=== PATIENT | male | born 1950 | race Caucasian/White ===

== ENCOUNTER 2017-11-06 09:42 | Observation (INO) | payer MEDICARE, OTHER ==
[2017-11-06] MEDS ORDERED: Albuterol/Ipratropium 3.0-0.5 MG/3 ML Neb Soln NEB ONE (10:00)
[2017-11-06] MEDS ORDERED: methylPREDNISolone Sodium Succinate 125 MG/2 ML SDV IVPUSH ONE (11:09)
--- NOTE | 2017-11-06 11:10 | EDM.PDOC ---
ED HPI GENERAL MEDICAL PROBLEM - General Chief Complaint: Respiratory Problem Stated Complaint: SOB Time Seen by Provider: 11/06/17 09:55 Source of Information: Reports: Patient, Family History Limitations: Reports: Respiratory Distress - History of Present Illness INITIAL COMMENTS - FREE TEXT/NARRATIVE: 66 y.o.w.m with a h/o Small Cell CA of left lung. 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 O2 sat on arrival was 89 on RA. Pt is not on home O2. He left lung is entirely "collapsed, inoperable). As per SO, his mediastinum is shifted to the left. Pt denies chest pain. He is on the 4th cycle for chemo at [facility]. Last Pat scan was stable. No N/V/D or any other acute medical issues. BP 127/57 RR 24 Pulse 120 Pulse ox 96% on 2 liters O2 Temp 37.1 Onset: Today Onset Date: 11/05/17 Onset Time: 08:00 Duration: Hour(s):, Getting Worse, Intermittent Location: Reports: Chest Quality: Reports: Same as Previous Episode Severity: Moderate Improves with: Reports: Medication, Rest Worsens with: Reports: Movement Context: Reports: Other (Asthma, Lung CA left lung "collapsed" ) Associated Symptoms: Reports: Loss of Appetite - Related Data Allergies Allergy/AdvReac Type Severity Reaction Status Date / Time Penicillins Allergy Cannot Verified 11/06/17 10:13 Remember Home Meds: Home Meds Albuterol Sulfate [Albuterol Sulfate HFA] 18 gm IH Q4HR PRN 07/11/13 [History] FLUoxetine [PROzac] 20 mg PO DAILY 07/11/13 [History] Tiotropium [Spiriva Handihaler] 1 dose INH DAILY 03/26/14 [History] atorvaSTATin [Lipitor] 20 mg PO BEDTIME 03/26/14 [History] Benzonatate 200 mg PO TID PRN 11/06/17 [History] Codeine/guaiFENesin [Robitussin AC] 10 ml PO Q4HR PRN 11/06/17 [History] Sodium Polystyrene Sulfonate [Kionex] 15 gram PO ASDIRECTED 11/06/17 [History] Social & Family History - Tobacco Use Years of Tobacco use: 35 - Alcohol Use Days Per Week of Alcohol Use: 0 - Recreational Drug Use Recreational Drug Use: No ED ROS GENERAL - Review of Systems Review Of Systems: See Below Constitutional: Reports: Weakness, Decreased Appetite HEENT: Reports: No Symptoms Respiratory: Reports: Shortness of Breath, Wheezing Cardiovascular: Reports: No Symptoms, Chest Pain, Blood Pressure Problem Endocrine: Reports: No Symptoms GI/Abdominal: Reports: No Symptoms, Mucous in Stool : Reports: No Symptoms Musculoskeletal: Reports: No Symptoms Skin: Reports: No Symptoms Neurological: Reports: No Symptoms Psychiatric: Reports: No Symptoms Hematologic/Lymphatic: Reports: No Symptoms Immunologic: Reports: No Symptoms ED EXAM, GENERAL - Physical Exam Exam: See Below Exam Limited By: Respiratory Distress General Appearance: Alert, WD/WN, Moderate Distress, Obese Eye Exam: Bilateral Eye: Normal Inspection Ears: Normal External Exam Ear Exam: Bilateral Ear: Auricle Normal Nose: Normal Inspection, Normal Mucosa Throat/Mouth: Normal Lips, Normal Gums, Other (pharyngitis) Head: Atraumatic, Normocephalic Neck: Normal Inspection, Supple, Non-Tender, Full Range of Motion Respiratory/Chest: Respiratory Distress, Wheezing, Other (No BS left lung, dullnes to percussion) Cardiovascular: Normal Peripheral Pulses, Regular Rate, Rhythm, No Edema, No Gallop, No JVD, No Murmur Peripheral Pulses: 1+: Brachial (R) GI/Abdominal: Normal Bowel Sounds, Soft, Non-Tender, No Organomegaly, No Abnormal Bruit (Male) Exam: No Hernia Rectal (Males) Exam: Deferred Back Exam: Normal Inspection, Full Range of Motion Extremities: Normal Inspection, Normal Range of Motion, Non-Tender, No Pedal Edema, Normal Capillary Refill Neurological: Alert, Oriented, CN II-XII Intact, Normal Cognition, Normal Gait, No Motor/Sensory Deficits Psychiatric: Normal Affect, Normal Mood Skin Exam: Warm, Dry, Intact, Normal Color, No Rash Lymphatic: No Adenopathy EKG INTERPRETATION EKG Date: 11/06/17 Time: 10:40 Rhythm: NSR Rate (Beats/Min): 103 [place]: Normal P-Wave: Present QRS: Normal ST-T: Normal QT: Normal Comparison: NA - No Prior EKG Course - Vital Signs Text/Narrative:: 66 y.o.w.m with a h/o Small Cell CA of left lung. 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 O2 sat on arrival was 89 on RA. Pt is not on home O2. He left lung is entirely "collapsed, inoperable). As per SO, his mediastinum is shifted to the left. Pt denies chest pain. He is on the 4th cycle for chemo at [facility]. Last Pat scan was stable. No N/V/D or any other acute medical issues. BP 127/57 RR 24 Pulse 120 Pulse ox 96% on 2 liters O2 Temp 37.1 PE: 66 y.o.w.m with SOB, Asthma exacerb. left lung CA with left lung opafication , H/O Kidney CA (not metastatic) Labs: HGB 10.4 RST posCx is pending Imaging: CXRE left lung opafication, midline shift , 2cm more compared to the 2016 CXRs. Right lung is clear as per RAD Labs; WBC 5.2 HGB 10.7 HCT38.4 BUN 45 Cr. 1.9 GFR 38 Impression: Asthma exacerbation, Strep pharyngitis, CRI, H/O SSCA left Lung, S/ P partial right nephrectomy, Opafication of left lung (inoperable) Tx: Duoneb, Solumedrol, Albuterol Xoponex. Azithromycin Reexam: Mild improvement only 12.02 pm Consultation: Dr. Hoffman, Oncologist [place], ok with neb machine will see the pt on 11/21/2017 1.10 pm: Consultation: Dr. Garcia, Hospitalist: accepted the patient for admission. Last Recorded V/S: Last Vital Signs Temp 36.8 C 11/06/17 13:11 Pulse 122 H 11/06/17 13:20 Resp 18 11/06/17 13:15 BP 126/57 L 11/06/17 13:15 Pulse Ox 98 11/06/17 15:42 - Orders/Labs/Meds Orders: Active Orders 24 hr Category Date Time Status Patient Status [ADT] Routine ADT 11/06/17 13:11 Active Oxygen Therapy [RC] PRN Care 11/06/17 13:11 Active Pulse Oximetry [RC] PRN Care 11/06/17 13:13 Active RT Aerosol Therapy [RC] ASDIRECTED Care 11/06/17 12:35 Active RT Aerosol Therapy [RC] ASDIRECTED Care 11/06/17 13:00 Active Up With Assistance [RC] ASDIRECTED Care 11/06/17 13:11 Active VTE/DVT Education [RC] Per Unit Routine Care 11/06/17 13:11 Active Vital Signs [RC] Q4H Care 11/06/17 13:11 Active Regular Diet [DIET] Diet 11/06/17 Breakfast Active CULTURE BLOOD [BC] Urgent Lab 11/06/17 10:15 Received CULTURE BLOOD [BC] Urgent Lab 11/06/17 10:15 Received STREP SCRN A RAPID W CULT CONF [RM] Stat Lab 11/06/17 12:15 Ordered Docusate Sodium [Colace] Med 11/06/17 13:11 Active 100 mg PO BID PRN Ondansetron [Zofran] Med 11/06/17 13:11 Active 4 mg IV Q4H PRN Blood Culture x2 Reflex Set [OM.PC] Urgent Oth 11/06/17 10:01 Ordered Resuscitation Status Routine Resus Stat 11/06/17 13:11 Ordered EKG 12 Lead [EK] Routine Ther 11/06/17 10:00 Ordered Medication Orders Atorvastatin Calcium (Lipitor) 20 mg PO BEDTIME MARLYN Docusate Sodium (Colace) 100 mg PO BID PRN PRN Reason: Constipation Levalbuterol HCl (Xopenex) 1.25 mg INH Q4H PRN PRN Reason: SHORTNESS OF BREATH Ondansetron HCl (Zofran) 4 mg IV Q4H PRN PRN Reason: Nausea/Vomiting Labs: Laboratory Tests 11/06/17 11/06/17 11/06/17 Range/Units 10:15 10:15 10:15 WBC 5.2 (4.5-12.0) X10-3/uL RBC 3.66 L (4.30-5.75) x10(6)uL Hgb 10.7 L D (11.5-15.5) g/dL Hct 33.0 (30.0-51.3) % MCV 90.1 (80-96) fL MCH 29.1 (27.7-33.6) pg MCHC 32.2 (32.2-35.4) g/dL RDW 16.3 H (11.5-15.5) % Plt Count 83 L (125-369) X10(3)uL MPV 8.6 (7.4-10.4) fL Add Manual Diff Yes Neutrophils % (Manual) 86 H (46-82) % Band Neutrophils % 3 (0-6) % Lymphocytes % (Manual) 10 L (13-37) % Monocytes % (Manual) 1 L (4-12) % Clumped Platelets Few Anisocytosis Few ABG pH (7.35-7.45) ABG pCO2 (35-45) mmHg ABG pO2 (83-108) mmHg ABG HCO3 (22-26) mmol/L ABG O2 Saturation (96-97) % ABG Base Excess (-2-2) Toni Test O2 Delivery Device Sodium 139 (135-145) mmol/L Potassium 4.1 (3.5-5.3) mmol/L Chloride 105 (100-110) mmol/L Carbon Dioxide 26 (21-32) mmol/L BUN 43 H (7-18) mg/dL Creatinine 1.9 H (0.70-1.30) mg/dL Est Cr Clr Drug Dosing 38.00 mL/min Estimated GFR (MDRD) 36 L (>60) BUN/Creatinine Ratio 22.6 H (9-20) Glucose 103 (80-116) mg/dL Lactic Acid 1.6 (0.4-2.2) mmol/L Calcium 8.7 (8.6-10.2) mg/dL Creatine Kinase (60-160) IU/L Troponin I (<0.017-0.056) ng/mL NT-Pro-B Natriuret Pep (<=125) pg/mL 11/06/17 11/06/17 11/06/17 Range/Units 10:15 10:15 11:21 WBC (4.5-12.0) X10-3/uL RBC (4.30-5.75) x10(6)uL Hgb (11.5-15.5) g/dL Hct (30.0-51.3) % MCV (80-96) fL MCH (27.7-33.6) pg MCHC (32.2-35.4) g/dL RDW (11.5-15.5) % Plt Count (125-369) X10(3)uL MPV (7.4-10.4) fL Add Manual Diff Neutrophils % (Manual) (46-82) % Band Neutrophils % (0-6) % Lymphocytes % (Manual) (13-37) % Monocytes % (Manual) (4-12) % Clumped Platelets Anisocytosis ABG pH 7.42 (7.35-7.45) ABG pCO2 36 (35-45) mmHg ABG pO2 102 (83-108) mmHg ABG HCO3 23 (22-26) mmol/L ABG O2 Saturation 98 H (96-97) % ABG Base Excess -0.8 (-2-2) Toni Test Passed O2 Delivery Device Nasal cannula Sodium (135-145) mmol/L Potassium (3.5-5.3) mmol/L Chloride (100-110) mmol/L Carbon Dioxide (21-32) mmol/L BUN (7-18) mg/dL Creatinine (0.70-1.30) mg/dL Est Cr Clr Drug Dosing mL/min Estimated GFR (MDRD) (>60) BUN/Creatinine Ratio (9-20) Glucose (80-116) mg/dL Lactic Acid (0.4-2.2) mmol/L Calcium (8.6-10.2) mg/dL Creatine Kinase 51 L (60-160) IU/L Troponin I 0.023 (<0.017-0.056) ng/mL NT-Pro-B Natriuret Pep 4451 H* (<=125) pg/mL Meds: Medications Generic Name Dose Route Start Last Admin Trade Name Freq PRN Reason Stop Dose Admin Atorvastatin Calcium 20 mg 11/06/17 21:00 Lipitor PO BEDTIME MARLYN Docusate Sodium 100 mg 11/06/17 13:11 Colace PO BID PRN Constipation Levalbuterol HCl 1.25 mg 11/06/17 13:43 Xopenex INH Q4H PRN SHORTNESS OF BREATH Ondansetron HCl 4 mg 11/06/17 13:11 Zofran IV Q4H PRN Nausea/Vomiting Discontinued Medications Generic Name Dose Route Start Last Admin Trade Name Freq PRN Reason Stop Dose Admin Albuterol 2.5 mg 11/06/17 12:10 11/06/17 12:15 Proventil Neb Soln NEB 11/06/17 12:11 2.5 mg ONETIME ONE Administration Albuterol 2.5 mg 11/06/17 12:35 11/06/17 12:41 Proventil Neb Soln NEB 11/06/17 12:36 2.5 mg ONETIME ONE Administration Albuterol 2.5 mg 11/06/17 12:35 11/06/17 15:41 Proventil Neb Soln NEB 11/06/17 12:36 Not Given ONETIME ONE Albuterol/Ipratropium 3 ml 11/06/17 10:00 11/06/17 10:39 Duoneb 3.0-0.5 Mg/3 Ml NEB 11/06/17 10:01 3 ml ONETIME ONE Administration Azithromycin 500 mg/ Sodium 250 mls @ 250 mls/hr 11/06/17 13:39 11/06/17 14: 00 Chloride IV 11/06/17 14:08 250 mls/hr ONETIME ONE Administration Levalbuterol HCl 1.25 mg 11/06/17 13:00 11/06/17 13:09 Xopenex NEB 11/06/17 13:01 1.25 mg ONETIME ONE Administration Levalbuterol HCl 1.25 gm 11/06/17 13:15 Xopenex Hfa INH Q4H PRN Asthma Methylprednisolone Sodium Succinate 125 mg 11/06/17 11:09 11/06/17 11:30 Solu-Medrol IVPUSH 11/06/17 11:10 125 mg ONETIME ONE Administration Departure - Departure Disposition: Admitted As Inpatient 68 - Discharge Information - My Orders Last 24 Hours: My Active Orders 11/06/17 10:00 EKG 12 Lead [EK] Routine 11/06/17 10:01 Blood Culture x2 Reflex Set [OM.PC] Urgent 11/06/17 10:15 CULTURE BLOOD [BC] Urgent CULTURE BLOOD [BC] Urgent 11/06/17 12:15 STREP SCRN A RAPID W CULT CONF [RM] Stat 11/06/17 12:35 RT Aerosol Therapy [RC] ASDIRECTED 11/06/17 13:00 RT Aerosol Therapy [RC] ASDIRECTED 11/06/17 13:11 Patient Status [ADT] Routine Oxygen Therapy [RC] PRN Up With Assistance [RC] ASDIRECTED VTE/DVT Education [RC] Per Unit Routine Vital Signs [RC] Q4H Docusate Sodium [Colace] 100 mg PO BID PRN Ondansetron [Zofran] 4 mg IV Q4H PRN Resuscitation Status Routine 11/06/17 13:13 Pulse Oximetry [RC] PRN 11/06/17 Breakfast Regular Diet [DIET] - Assessment/Plan Last 24 Hours: My Active Orders 11/06/17 10:00 EKG 12 Lead [EK] Routine 11/06/17 10:01 Blood Culture x2 Reflex Set [OM.PC] Urgent 11/06/17 10:15 CULTURE BLOOD [BC] Urgent CULTURE BLOOD [BC] Urgent 11/06/17 12:15 STREP SCRN A RAPID W CULT CONF [RM] Stat 11/06/17 12:35 RT Aerosol Therapy [RC] ASDIRECTED 11/06/17 13:00 RT Aerosol Therapy [RC] ASDIRECTED 11/06/17 13:11 Patient Status [ADT] Routine Oxygen Therapy [RC] PRN Up With Assistance [RC] ASDIRECTED VTE/DVT Education [RC] Per Unit Routine Vital Signs [RC] Q4H Docusate Sodium [Colace] 100 mg PO BID PRN Ondansetron [Zofran] 4 mg IV Q4H PRN Resuscitation Status Routine 11/06/17 13:13 Pulse Oximetry [RC] PRN 11/06/17 Breakfast Regular Diet [DIET]
--- NOTE | 2017-11-06 11:34 | CR ---
INDICATION: Short of breath, lung CA. History of renal cell CA. 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 Left lung completely collapsed, not able to have surgery. Diagnosed 4 years ago. Smoker x35 years. CHEST: PA and lateral views of the chest, 11/06/2017, were compared with 2012. There is now noted what appears to be complete collapse of the left lung with shift of midline structures, including the heart, into the left hemithorax. Pleural effusion is suggested on the left. A definite active infiltrate or effusion was not seen on the right. The right lung is hyperaerated, as to be expected. Overlying EKG leads are noted. Port-A-Cath is noted in place with its tip likely in good position. Bony structures appear to be fairly intact. IMPRESSION: Complete collapse of the left lung. Report was given by phone to Dr. Evita looney a.m. - 11/06/2017. ADDENDUM: Comparison study is obtained from [facility] [facility], dated 10/18/2015, which also shows complete opacification of the left hemithorax with a Port-A-Cath in place. There may be somewhat greater degree of left shift of midline structures than was present on the previous study, and a greater amount of hyperaeration of the lung, compared with the previous study also. IMPRESSION: 1. Increased shift of midline structures to the left, approximately 2 cm, compared with 10/18/2015 [facility] images. 2. Hyperaeration of the right lung has increased compared with the previous study of 2015. Report was called to Dr. Jama at 1126 hours, 11/06/2017. [facility]
[2017-11-06] MEDS ORDERED: Albuterol 0.083% 2.5 MG/3 ML Neb Soln NEB ONE ×3 (12:10→12:35)
[2017-11-06] MEDS ORDERED: Levalbuterol HCl 1.25 MG/3 ML Neb NEB ONE (13:00)
[2017-11-06] MEDS ORDERED: Azithromycin 500 MG in Sodium Chloride 0.9% 250 ML IV ONE ×2 (13:09→13:39)
[2017-11-06] MEDS ORDERED: Docusate Sodium 100 MG Cap PO PRN (13:11)
[2017-11-06] MEDS ORDERED: Ondansetron 4 MG/2 ML SDV IV PRN (13:11)
[2017-11-06] MEDS ORDERED: Levalbuterol Tartrate HFA 15 GM Inhaler INH PRN (13:15)
[2017-11-06] MEDS ORDERED: Levalbuterol HCl 1.25 MG/3 ML Neb INH PRN (13:43)
[2017-11-06] MEDS ORDERED: Albuterol/Ipratropium 3.0-0.5 MG/3 ML Neb Soln NEB PRN (17:56)
--- NOTE | 2017-11-06 18:06 | PCM.HP ---
H&P History of Present Illness - General Date of Service: 11/06/17 Admit Problem/Dx: Admission Diagnosis/Problem Admission Diagnosis/Problem Asthma Source of Information: Patient, Old Records History Limitations: Reports: No Limitations - History of Present Illness Initial Comments - Free Text/Narative: Brien 66-year-old male who came in because of fever and increasing shortness of breath last 2 days. He has a history of COPD/Asthma ,squamous cell carcinoma of the lung, atelectasis and collapse of the left lung. He underwent cycle # 5 of chemotherapy on 10 of October. Yesterday he reports more wheezing and cough,associated with sore throat.He was unable to sleep last night because of the symptoms. Temperature was low-grade on and off. His family brought him to he ED. His other Medical problems include: #depression,2010 #Kidney cancer s/p partial Nephrectomy # CKD stage 3,baseline Cr 1.7 # ISH wears CPAP - Related Data Allergies/Adverse Reactions: Allergies Allergy/AdvReac Type Severity Reaction Status Date / Time Penicillins Allergy Cannot Verified 11/06/17 10:13 Remember Home Medications: Home Meds Albuterol Sulfate [Albuterol Sulfate HFA] 18 gm IH Q4HR PRN 07/11/13 [History] FLUoxetine [PROzac] 20 mg PO DAILY 07/11/13 [History] Tiotropium [Spiriva Handihaler] 1 dose INH DAILY 03/26/14 [History] atorvaSTATin [Lipitor] 20 mg PO BEDTIME 03/26/14 [History] Benzonatate 200 mg PO TID PRN 11/06/17 [History] Codeine/guaiFENesin [Robitussin AC] 10 ml PO Q4HR PRN 11/06/17 [History] Sodium Polystyrene Sulfonate [Kionex] 15 gram PO ASDIRECTED 11/06/17 [History] Past Medical History HEENT History: Reports: Cataract Other HEENT History: left cataract remove 2015 Respiratory History: Reports: Other (See Below) Other Respiratory History: lung ca 2012 diagnosed Genitourinary History: Reports: Other (See Below) Other Genitourinary History: kidney surgery right 1/2 removed 2011 Hematologic History: Reports: Other (See Below) Other Hematologic History: neulasta with chemo Oncologic (Cancer) History: Reports: Lung, Renal - Infectious Disease History Infectious Disease History: Reports: None Social & Family History - Family History Family Medical History: Noncontributory - Tobacco Use Smoking Status *Q: Former Smoker Years of Tobacco use: 35 Used Tobacco, but Quit: Yes Month/Year Tobacco Last Used: 08/2012 - Caffeine Use Caffeine Use: Reports: Coffee - Alcohol Use Days Per Week of Alcohol Use: 0 - Recreational Drug Use Recreational Drug Use: No H&P Review of Systems - Review of Systems: Review Of Systems: ROS reveals no pertinent complaints other than HPI. Exam - Exam Exam: See Below - Vital Signs Vital Signs: Last Vital Signs Temp 98.3 F 11/06/17 13:11 Pulse 122 H 11/06/17 13:20 Resp 18 11/06/17 13:15 BP 126/57 L 11/06/17 13:15 Pulse Ox 98 11/06/17 15:42 Weight: 112.037 kg - Exam Quality Assessment: Supplemental Oxygen General: Alert, Oriented, 4 HEENT: PERRLA, Hearing Intact, Mucosa Moist & [place], Nares Patent, Normal Nasal Septum, Posterior Pharynx Clear, Conjunctiva Clear, EOMI, EACs Clear, TMs Clear Neck: Supple, Trachea Midline, Lymphadenopathy Lungs: Decreased Breath Sounds (Left), Rhonchi Cardiovascular: Regular Rate, Regular Rhythm GI/Abdominal Exam: Normal Bowel Sounds, Soft, Non-Tender, No Organomegaly, No Distention, No Abnormal Bruit, No Mass, Pelvis Stable (Male) Exam: Deferred Rectal (Males) Exam: Deferred Back Exam: Normal Inspection, Full Range of Motion, NT Extremities: Normal Inspection, Normal Range of Motion, Non-Tender, No Pedal Edema, Normal Capillary Refill Skin: Warm, Dry, Intact Neurological: Cranial Nerves Intact, Reflexes Equal Bilateral Neuro Extensive - Mental Status: Alert, Oriented x3, Normal Mood/Affect, Normal Cognition Neuro Extensive - Motor, Sensory, Reflexes: CN II-XII Intact, Normal Gait, Normal Reflexes Psychiatric: Alert, Normal Affect, Normal Mood - Patient Data Lab Results Last 24 hrs: Laboratory Results - last 24 hr 11/06/17 11/06/17 11/06/17 Range/Units 10:15 10:15 10:15 WBC 5.2 (4.5-12.0) X10-3/uL RBC 3.66 L (4.30-5.75) x10(6)uL Hgb 10.7 L D (11.5-15.5) g/dL Hct 33.0 (30.0-51.3) % MCV 90.1 (80-96) fL MCH 29.1 (27.7-33.6) pg MCHC 32.2 (32.2-35.4) g/dL RDW 16.3 H (11.5-15.5) % Plt Count 83 L (125-369) X10(3)uL MPV 8.6 (7.4-10.4) fL Add Manual Diff Yes Neutrophils % (Manual) 86 H (46-82) % Band Neutrophils % 3 (0-6) % Lymphocytes % (Manual) 10 L (13-37) % Monocytes % (Manual) 1 L (4-12) % Clumped Platelets Few Anisocytosis Few ABG pH (7.35-7.45) ABG pCO2 (35-45) mmHg ABG pO2 (83-108) mmHg ABG HCO3 (22-26) mmol/L ABG O2 Saturation (96-97) % ABG Base Excess (-2-2) Toni Test O2 Delivery Device Sodium 139 (135-145) mmol/L Potassium 4.1 (3.5-5.3) mmol/L Chloride 105 (100-110) mmol/L Carbon Dioxide 26 (21-32) mmol/L BUN 43 H (7-18) mg/dL Creatinine 1.9 H (0.70-1.30) mg/dL Est Cr Clr Drug Dosing 38.00 mL/min Estimated GFR (MDRD) 36 L (>60) BUN/Creatinine Ratio 22.6 H (9-20) Glucose 103 (80-116) mg/dL Lactic Acid 1.6 (0.4-2.2) mmol/L Calcium 8.7 (8.6-10.2) mg/dL Creatine Kinase (60-160) IU/L Troponin I (<0.017-0.056) ng/mL NT-Pro-B Natriuret Pep (<=125) pg/mL 11/06/17 11/06/17 11/06/17 Range/Units 10:15 10:15 11:21 WBC (4.5-12.0) X10-3/uL RBC (4.30-5.75) x10(6)uL Hgb (11.5-15.5) g/dL Hct (30.0-51.3) % MCV (80-96) fL MCH (27.7-33.6) pg MCHC (32.2-35.4) g/dL RDW (11.5-15.5) % Plt Count (125-369) X10(3)uL MPV (7.4-10.4) fL Add Manual Diff Neutrophils % (Manual) (46-82) % Band Neutrophils % (0-6) % Lymphocytes % (Manual) (13-37) % Monocytes % (Manual) (4-12) % Clumped Platelets Anisocytosis ABG pH 7.42 (7.35-7.45) ABG pCO2 36 (35-45) mmHg ABG pO2 102 (83-108) mmHg ABG HCO3 23 (22-26) mmol/L ABG O2 Saturation 98 H (96-97) % ABG Base Excess -0.8 (-2-2) Toni Test Passed O2 Delivery Device Nasal cannula Sodium (135-145) mmol/L Potassium (3.5-5.3) mmol/L Chloride (100-110) mmol/L Carbon Dioxide (21-32) mmol/L BUN (7-18) mg/dL Creatinine (0.70-1.30) mg/dL Est Cr Clr Drug Dosing mL/min Estimated GFR (MDRD) (>60) BUN/Creatinine Ratio (9-20) Glucose (80-116) mg/dL Lactic Acid (0.4-2.2) mmol/L Calcium (8.6-10.2) mg/dL Creatine Kinase 51 L (60-160) IU/L Troponin I 0.023 (<0.017-0.056) ng/mL NT-Pro-B Natriuret Pep 4451 H* (<=125) pg/mL Result Diagrams: 11/06/17 10:15 11/06/17 10:15 Abundio Results Last 24 hrs: Microbiology 11/06/17 12:15 Group A Streptococcus Rapid Screen - Final Throat Positive Strep A Screen - Problem List (1) Squamous cell carcinoma of lung, stage II SNOMED Code(s): 858934509 ICD Code: C34.90 - MALIGNANT NEOPLASM OF UNSP PART OF UNSP BRONCHUS OR LUNG Status: Acute Current Visit: Yes (2) COPD exacerbation SNOMED Code(s): 895589837 ICD Code: J44.1 - CHRONIC OBSTRUCTIVE PULMONARY DISEASE W (ACUTE) EXACERBATION Status: Acute Current Visit: Yes (3) Squamous cell lung cancer SNOMED Code(s): 088385907, 943231849 ICD Code: C34.90 - MALIGNANT NEOPLASM OF UNSP PART OF UNSP BRONCHUS OR LUNG Status: Acute Current Visit: Yes Qualifiers: Laterality: left Qualified Code(s): C34.92 - Malignant neoplasm of unspecified part of left bronchus or lung (4) ISH (obstructive sleep apnea) SNOMED Code(s): 55259246 ICD Code: G47.33 - OBSTRUCTIVE SLEEP APNEA (ADULT) (PEDIATRIC) Status: Acute Current Visit: Yes (5) Obesity SNOMED Code(s): 179157777, 854652228 ICD Code: E66.9 - OBESITY, UNSPECIFIED Status: Acute Current Visit: Yes (6) CKD (chronic kidney disease) stage 3, GFR 30-59 ml/min SNOMED Code(s): 769322225 ICD Code: N18.3 - CHRONIC KIDNEY DISEASE, STAGE 3 (MODERATE) Status: Acute Current Visit: Yes (7) Anemia SNOMED Code(s): 280312098 ICD Code: D64.9 - ANEMIA, UNSPECIFIED Status: Acute Current Visit: Yes (8) Depression SNOMED Code(s): 47486149 ICD Code: F32.9 - MAJOR DEPRESSIVE DISORDER, SINGLE EPISODE, UNSPECIFIED Status: Acute Current Visit: Yes Qualifiers: Depression Type: major depressive disorder Active/Remission status: remission status unspecified (9) HLD (hyperlipidemia) SNOMED Code(s): 76334716 ICD Code: E78.5 - HYPERLIPIDEMIA, UNSPECIFIED Status: Acute Current Visit : Yes Qualifiers: Hyperlipidemia type: unspecified Qualified Code(s): E78.5 - Hyperlipidemia , unspecified (10) Strep throat SNOMED Code(s): 52155409 ICD Code: J02.0 - STREPTOCOCCAL PHARYNGITIS Status: Acute Current Visit: Yes Problem List Initiated/Reviewed/Updated: Yes Orders Last 24hrs: Active Orders 24 hr Category Date Time Status Patient Status [ADT] Routine ADT 11/06/17 13:11 Active Intake and Output [RC] QSHIFT Care 11/06/17 17:57 Ordered Oxygen Therapy [RC] PRN Care 11/06/17 13:11 Active Oxygen Therapy [RC] PRN Care 11/06/17 17:57 Ordered Pulse Oximetry [RC] PRN Care 11/06/17 13:13 Active RT Aerosol Therapy [RC] ASDIRECTED Care 11/06/17 12:35 Active RT Aerosol Therapy [RC] ASDIRECTED Care 11/06/17 13:00 Active RT Aerosol Therapy [RC] ASDIRECTED Care 11/06/17 17:58 Ordered RT Post Treatment Assessment [RC] Click to Edit Care 11/06/17 13:17 Active Up With Assistance [RC] ASDIRECTED Care 11/06/17 13:11 Active VTE/DVT Education [RC] Per Unit Routine Care 11/06/17 13:11 Active VTE/DVT Education [RC] Per Unit Routine Care 11/06/17 17:57 Ordered Vital Signs [RC] Q4H Care 11/06/17 13:11 Active Regular Diet [DIET] Diet 11/06/17 Breakfast Active CBC WITH AUTO DIFF [HEME] AM Lab 11/07/17 05:11 Ordered COMPREHENSIVE METABOLIC PN,CMP [CHEM] AM Lab 11/07/17 05:11 Ordered CULTURE BLOOD [BC] Urgent Lab 11/06/17 10:15 Received CULTURE BLOOD [BC] Urgent Lab 11/06/17 10:15 Received MAGNESIUM [CHEM] AM Lab 11/07/17 05:11 Ordered PHOSPHORUS [CHEM] AM Lab 11/07/17 05:11 Ordered STREP SCRN A RAPID W CULT CONF [RM] Stat Lab 11/06/17 12:15 Ordered Albuterol/Ipratropium [DuoNeb 3.0-0.5 MG/3 ML] Med 11/06/17 17:56 Ordered 3 ml NEB QID PRN Docusate Sodium [Colace] Med 11/06/17 13:11 Active 100 mg PO BID PRN Levalbuterol HCl [Xopenex] Med 11/06/17 13:43 Active 1.25 mg INH Q4H PRN Ondansetron [Zofran] Med 11/06/17 13:11 Active 4 mg IV Q4H PRN atorvaSTATin [Lipitor] Med 11/06/17 21:00 Active 20 mg PO BEDTIME methylPREDNISolone Sod Succ [Solu-MEDROL] Med 11/06/17 18:00 Ordered 125 mg IVPUSH Q8H Blood Culture x2 Reflex Set [OM.PC] Urgent Oth 11/06/17 10:01 Ordered Sequential Compression Device [OM.PC] Per Unit Routine Oth 11/06/17 17:57 Ordered Resuscitation Status Routine Resus Stat 11/06/17 13:11 Ordered EKG 12 Lead [EK] Routine Ther 11/06/17 10:00 Ordered Medication Orders Albuterol/Ipratropium (Duoneb 3.0-0.5 Mg/3 Ml) 3 ml NEB QID PRN PRN Reason: Wheezing Atorvastatin Calcium (Lipitor) 20 mg PO BEDTIME MARLYN Docusate Sodium (Colace) 100 mg PO BID PRN PRN Reason: Constipation Levalbuterol HCl (Xopenex) 1.25 mg INH Q4H PRN PRN Reason: SHORTNESS OF BREATH Methylprednisolone Sodium Succinate (Solu-Medrol) 125 mg IVPUSH Q8H MARLYN Ondansetron HCl (Zofran) 4 mg IV Q4H PRN PRN Reason: Nausea/Vomiting Assessment/Plan Comment:: He is tested positive for strep. I agree with azithromycin. I will also treat him for COPD exacerbation with oxygen supplementation by nasal cannula, SVNs, and Solu-Medrol. We'll repeat some labs in the morning and decrease better probably discharge him. His BNP is high but will repeat in the morning, not sure what the cause of this is I see no history of CHF in his record did have a stress test in 2016 that was suggestive of an ejection fraction of 71%. No evidence of ischemia at that time.
[2017-11-06] MEDS ORDERED: GUAIFENESIN PO PRN (18:12)
[2017-11-06] MEDS ORDERED: BENZONATATE 200 MG PO PRN (18:12)
[2017-11-06] MEDS ORDERED: CODEINE PO PRN (18:12)
[2017-11-06] MEDS ORDERED: SODIUM POLYSTYRENE SULFONATE 15 GM PO SCH (18:15)
[2017-11-06] MEDS ORDERED: ClonazePAM 0.5 MG Tab PO PRN (18:42)
[2017-11-06] MEDS: methylPREDNISolone Sodium Succinate 125 MG/2 ML SDV IVPUSH SCH (19:03)
[2017-11-06] MEDS: Sodium Chloride 0.9% 10 ML Syringe FLUSH PRN (19:38)
[2017-11-06] MEDS ORDERED: ATORVASTATIN 20 MG PO SCH (21:00)
[2017-11-06] MEDS ORDERED: atorvaSTATin 20 MG Tab PO SCH (21:00)
[2017-11-07] MEDS: methylPREDNISolone Sodium Succinate 125 MG/2 ML SDV IVPUSH SCH ×2 (01:02→10:07)
[2017-11-07] MEDS: Sodium Chloride 0.9% 10 ML Syringe FLUSH PRN ×2 (01:03→10:07)
[2017-11-07] MEDS ORDERED: Codeine/guaiFENesin 100-10 MG/5 ML Syrup 5 ML Cup PO PRN (08:00)
--- NOTE | 2017-11-07 08:29 | PCM.PN ---
- General Info Date of Service: 11/07/17 Subjective Update: Brien slept well has no new complaints today. Functional Status: Reports: Pain Controlled - Review of Systems General: Reports: No Symptoms HEENT: Reports: No Symptoms Pulmonary: Reports: Shortness of Breath, Cough, Wheezing Cardiovascular: Reports: No Symptoms - Patient Data Vitals - Most Recent: Last Vital Signs Temp 97.4 F 11/07/17 07:13 Pulse 88 11/07/17 07:50 Resp 20 11/07/17 07:13 BP 130/83 11/07/17 07:13 Pulse Ox 98 11/07/17 07:50 Weight - Most Recent: 112.037 kg I&O - Last 24 Hours: Intake & Output 11/06/17 11/07/17 11/07/17 22:59 06:59 14:59 Intake Total 250 400 Balance 250 400 Lab Results Last 24 Hours: Laboratory Results - last 24 hr 11/06/17 11/06/17 11/06/17 Range/Units 10:15 10:15 10:15 WBC 5.2 (4.5-12.0) X10-3/uL RBC 3.66 L (4.30-5.75) x10(6)uL Hgb 10.7 L D (11.5-15.5) g/dL Hct 33.0 (30.0-51.3) % MCV 90.1 (80-96) fL MCH 29.1 (27.7-33.6) pg MCHC 32.2 (32.2-35.4) g/dL RDW 16.3 H (11.5-15.5) % Plt Count 83 L (125-369) X10(3)uL MPV 8.6 (7.4-10.4) fL Add Manual Diff Yes Neutrophils % (Manual) 86 H (46-82) % Band Neutrophils % 3 (0-6) % Lymphocytes % (Manual) 10 L (13-37) % Monocytes % (Manual) 1 L (4-12) % Clumped Platelets Few Anisocytosis Few ABG pH (7.35-7.45) ABG pCO2 (35-45) mmHg ABG pO2 (83-108) mmHg ABG HCO3 (22-26) mmol/L ABG O2 Saturation (96-97) % ABG Base Excess (-2-2) Toni Test O2 Delivery Device Sodium 139 (135-145) mmol/L Potassium 4.1 (3.5-5.3) mmol/L Chloride 105 (100-110) mmol/L Carbon Dioxide 26 (21-32) mmol/L BUN 43 H (7-18) mg/dL Creatinine 1.9 H (0.70-1.30) mg/dL Est Cr Clr Drug Dosing 38.00 mL/min Estimated GFR (MDRD) 36 L (>60) BUN/Creatinine Ratio 22.6 H (9-20) Glucose 103 (80-116) mg/dL Lactic Acid 1.6 (0.4-2.2) mmol/L Calcium 8.7 (8.6-10.2) mg/dL Phosphorus (2.6-4.6) mg/dL Magnesium (1.8-2.5) mg/dL Total Bilirubin (0.1-1.3) mg/dL AST (5-25) IU/L ALT (12-36) U/L Alkaline Phosphatase (56-112) IU/L Creatine Kinase (60-160) IU/L Troponin I (<0.017-0.056) ng/mL NT-Pro-B Natriuret Pep (<=125) pg/mL Total Protein (6.0-8.0) g/dL Albumin (3.2-4.6) g/dL Globulin g/dL Albumin/Globulin Ratio 11/06/17 11/06/17 11/06/17 Range/Units 10:15 10:15 11:21 WBC (4.5-12.0) X10-3/uL RBC (4.30-5.75) x10(6)uL Hgb (11.5-15.5) g/dL Hct (30.0-51.3) % MCV (80-96) fL MCH (27.7-33.6) pg MCHC (32.2-35.4) g/dL RDW (11.5-15.5) % Plt Count (125-369) X10(3)uL MPV (7.4-10.4) fL Add Manual Diff Neutrophils % (Manual) (46-82) % Band Neutrophils % (0-6) % Lymphocytes % (Manual) (13-37) % Monocytes % (Manual) (4-12) % Clumped Platelets Anisocytosis ABG pH 7.42 (7.35-7.45) ABG pCO2 36 (35-45) mmHg ABG pO2 102 (83-108) mmHg ABG HCO3 23 (22-26) mmol/L ABG O2 Saturation 98 H (96-97) % ABG Base Excess -0.8 (-2-2) Toni Test Passed O2 Delivery Device Nasal cannula Sodium (135-145) mmol/L Potassium (3.5-5.3) mmol/L Chloride (100-110) mmol/L Carbon Dioxide (21-32) mmol/L BUN (7-18) mg/dL Creatinine (0.70-1.30) mg/dL Est Cr Clr Drug Dosing mL/min Estimated GFR (MDRD) (>60) BUN/Creatinine Ratio (9-20) Glucose (80-116) mg/dL Lactic Acid (0.4-2.2) mmol/L Calcium (8.6-10.2) mg/dL Phosphorus (2.6-4.6) mg/dL Magnesium (1.8-2.5) mg/dL Total Bilirubin (0.1-1.3) mg/dL AST (5-25) IU/L ALT (12-36) U/L Alkaline Phosphatase (56-112) IU/L Creatine Kinase 51 L (60-160) IU/L Troponin I 0.023 (<0.017-0.056) ng/mL NT-Pro-B Natriuret Pep 4451 H* (<=125) pg/mL Total Protein (6.0-8.0) g/dL Albumin (3.2-4.6) g/dL Globulin g/dL Albumin/Globulin Ratio 11/07/17 11/07/17 Range/Units 06:10 06:10 WBC 3.5 L (4.5-12.0) X10-3/uL RBC 3.55 L (4.30-5.75) x10(6)uL Hgb 10.4 L (11.5-15.5) g/dL Hct 31.8 (30.0-51.3) % MCV 89.6 (80-96) fL MCH 29.2 (27.7-33.6) pg MCHC 32.6 (32.2-35.4) g/dL RDW 16.9 H (11.5-15.5) % Plt Count 90 L (125-369) X10(3)uL MPV 9.0 (7.4-10.4) fL Add Manual Diff Yes Neutrophils % (Manual) 86 H (46-82) % Band Neutrophils % 2 (0-6) % Lymphocytes % (Manual) 6 L (13-37) % Monocytes % (Manual) 6 (4-12) % Clumped Platelets Anisocytosis Few ABG pH (7.35-7.45) ABG pCO2 (35-45) mmHg ABG pO2 (83-108) mmHg ABG HCO3 (22-26) mmol/L ABG O2 Saturation (96-97) % ABG Base Excess (-2-2) Toni Test O2 Delivery Device Sodium 140 (135-145) mmol/L Potassium 4.5 (3.5-5.3) mmol/L Chloride 106 (100-110) mmol/L Carbon Dioxide 25 (21-32) mmol/L BUN 47 H (7-18) mg/dL Creatinine 2.2 H* (0.70-1.30) mg/dL Est Cr Clr Drug Dosing 32.82 mL/min Estimated GFR (MDRD) 30 L (>60) BUN/Creatinine Ratio 21.4 H (9-20) Glucose 160 H (80-116) mg/dL Lactic Acid (0.4-2.2) mmol/L Calcium 9.0 (8.6-10.2) mg/dL Phosphorus 4.3 (2.6-4.6) mg/dL Magnesium 2.2 (1.8-2.5) mg/dL Total Bilirubin 0.4 (0.1-1.3) mg/dL AST 13 (5-25) IU/L ALT 18 (12-36) U/L Alkaline Phosphatase 71 (56-112) IU/L Creatine Kinase (60-160) IU/L Troponin I (<0.017-0.056) ng/mL NT-Pro-B Natriuret Pep (<=125) pg/mL Total Protein 6.1 (6.0-8.0) g/dL Albumin 2.7 L (3.2-4.6) g/dL Globulin 3.4 g/dL Albumin/Globulin Ratio 0.8 Abundio Results Last 24 Hours: Microbiology 11/06/17 12:15 Group A Streptococcus Rapid Screen - Final Throat Positive Strep A Screen Med Orders - Current: Current Medications Albuterol/Ipratropium (Duoneb 3.0-0.5 Mg/3 Ml) 3 ml NEB QID PRN PRN Reason: Wheezing Last Admin: 11/07/17 07:35 Dose: 3 ml Atorvastatin Calcium (Lipitor) 20 mg PO BEDTIME MARLYN Last Admin: 11/06/17 20:20 Dose: 20 mg Clonazepam (Klonopin) 0.5 mg PO BEDTIME PRN PRN Reason: Insomnia Docusate Sodium (Colace) 100 mg PO BID PRN PRN Reason: Constipation Fluoxetine HCl (Prozac) 20 mg PO DAILY [facility] Guaifenesin/Codeine Phosphate (Robitussin Ac) 10 ml PO Q4H PRN PRN Reason: COUGH Levalbuterol HCl (Xopenex) 1.25 mg INH Q4H PRN PRN Reason: SHORTNESS OF BREATH Last Admin: 11/06/17 19:10 Dose: 1.25 mg Methylprednisolone Sodium Succinate (Solu-Medrol) 125 mg IVPUSH Q8H MARLYN Last Admin: 11/07/17 01:02 Dose: 125 mg Benzonatate ( Tessalon) 200 Mg Capsule Own Med 0 mg PO TID PRN PRN Reason: Cough Non-Formulary Medication (Sodium Polystyrene Sulfonate [Kionex]) 15 gram PO ASDIRECTED MARLYN Ondansetron HCl (Zofran) 4 mg IV Q4H PRN PRN Reason: Nausea/Vomiting Sodium Chloride (Saline Flush) 10 ml FLUSH ASDIRECTED PRN PRN Reason: Keep Vein Open Last Admin: 11/07/17 01:03 Dose: 10 ml Tiotropium Bernard (Spiriva Handihaler) 18 mcg INH DAILY MARLYN Discontinued Medications Albuterol (Proventil Neb Soln) 2.5 mg NEB ONETIME ONE Stop: 11/06/17 12:11 Last Admin: 11/06/17 12:15 Dose: 2.5 mg Albuterol (Proventil Neb Soln) 2.5 mg NEB ONETIME ONE Stop: 11/06/17 12:36 Last Admin: 11/06/17 12:41 Dose: 2.5 mg Albuterol (Proventil Neb Soln) 2.5 mg NEB ONETIME ONE Stop: 11/06/17 12:36 Last Admin: 11/06/17 15:41 Dose: Not Given Albuterol/Ipratropium (Duoneb 3.0-0.5 Mg/3 Ml) 3 ml NEB ONETIME ONE Stop: 11/06/17 10:01 Last Admin: 11/06/17 10:39 Dose: 3 ml Atorvastatin Calcium (Lipitor) 20 mg PO BEDTIME MARLYN Guaifenesin/Codeine Phosphate (Robitussin Ac) 10 ml PO Q4H PRN PRN Reason: Cough Azithromycin 500 mg/ Sodium (Chloride) 250 mls @ 250 mls/hr IV ONETIME ONE Stop: 11/06/17 14:08 Last Admin: 11/06/17 14:00 Dose: 250 mls/hr Levalbuterol HCl (Xopenex) 1.25 mg NEB ONETIME ONE Stop: 11/06/17 13:01 Last Admin: 11/06/17 13:09 Dose: 1.25 mg Levalbuterol HCl (Xopenex Hfa) 1.25 gm INH Q4H PRN PRN Reason: Asthma Methylprednisolone Sodium Succinate (Solu-Medrol) 125 mg IVPUSH ONETIME ONE Stop: 11/06/17 11:10 Last Admin: 11/06/17 11:30 Dose: 125 mg - Exam Quality Assessment: No: Supplemental Oxygen General: Alert, Oriented HEENT: Pupils Equal, Pupils Reactive, EOMI, Mucous Membr. Moist/[place] Neck: Supple Lungs: Decreased Breath Sounds, Wheezing - Problem List & Annotations (1) Squamous cell carcinoma of lung, stage II SNOMED Code(s): 136401189 Code(s): C34.90 - MALIGNANT NEOPLASM OF UNSP PART OF UNSP BRONCHUS OR LUNG Status: Acute Current Visit: Yes Qualifiers: Laterality: unspecified laterality Qualified Code(s): C34.90 - Malignant neoplasm of unspecified part of unspecified bronchus or lung (2) COPD exacerbation SNOMED Code(s): 614613970 Code(s): J44.1 - CHRONIC OBSTRUCTIVE PULMONARY DISEASE W (ACUTE) EXACERBATION Status: Acute Current Visit: Yes (3) Squamous cell lung cancer SNOMED Code(s): 321080372, 965683287 Code(s): C34.90 - MALIGNANT NEOPLASM OF UNSP PART OF UNSP BRONCHUS OR LUNG Status: Acute Current Visit: Yes Qualifiers: Laterality: left Qualified Code(s): C34.92 - Malignant neoplasm of unspecified part of left bronchus or lung (4) ISH (obstructive sleep apnea) SNOMED Code(s): 04353281 Code(s): G47.33 - OBSTRUCTIVE SLEEP APNEA (ADULT) (PEDIATRIC) Status: Acute Current Visit: Yes (5) Obesity SNOMED Code(s): 273664712, 310807720 Code(s): E66.9 - OBESITY, UNSPECIFIED Status: Acute Current Visit: Yes (6) CKD (chronic kidney disease) stage 3, GFR 30-59 ml/min SNOMED Code(s): 701128634 Code(s): N18.3 - CHRONIC KIDNEY DISEASE, STAGE 3 (MODERATE) Status: Acute Current Visit: Yes (7) Anemia SNOMED Code(s): 468795523 Code(s): D64.9 - ANEMIA, UNSPECIFIED Status: Acute Current Visit: Yes (8) Depression SNOMED Code(s): 22283691 Code(s): F32.9 - MAJOR DEPRESSIVE DISORDER, SINGLE EPISODE, UNSPECIFIED Status: Acute Current Visit: Yes Qualifiers: Depression Type: major depressive disorder Active/Remission status: remission status unspecified (9) HLD (hyperlipidemia) SNOMED Code(s): 26048351 Code(s): E78.5 - HYPERLIPIDEMIA, UNSPECIFIED Status: Acute Current Visit : Yes Qualifiers: Hyperlipidemia type: unspecified Qualified Code(s): E78.5 - Hyperlipidemia , unspecified (10) Strep throat SNOMED Code(s): 09339537 Code(s): J02.0 - STREPTOCOCCAL PHARYNGITIS Status: Acute Current Visit: Yes - Problem List Review Problem List Initiated/Reviewed/Updated: Yes - My Orders Last 24 Hours: My Active Orders 11/06/17 17:56 Albuterol/Ipratropium [DuoNeb 3.0-0.5 MG/3 ML] 3 ml NEB QID PRN 11/06/17 17:57 Intake and Output [RC] QSHIFT Oxygen Therapy [RC] PRN VTE/DVT Education [RC] Per Unit Routine Sequential Compression Device [OM.PC] Per Unit Routine 11/06/17 17:58 RT Aerosol Therapy [RC] ASDIRECTED 11/06/17 18:00 methylPREDNISolone Sod Succ [Solu-MEDROL] 125 mg IVPUSH Q8H 11/06/17 18:12 Benzonatate [Benzonatate] 0 mg PO TID PRN 11/06/17 18:15 Sodium Polystyrene Sulfonate [Kionex] 15 gram PO ASDIRECTED 11/06/17 18:42 ClonazePAM [KlonoPIN] 0.5 mg PO BEDTIME PRN 11/06/17 19:13 Sodium Chloride 0.9% [Saline Flush] 10 ml FLUSH ASDIRECTED PRN 11/07/17 08:00 Codeine/guaiFENesin [Robitussin AC] 10 ml PO Q4H PRN 11/07/17 08:27 Ready for Discharge [RC] PER UNIT ROUTINE 11/07/17 09:00 FLUoxetine [PROzac] 20 mg PO DAILY Tiotropium [Spiriva HandiHaler] 18 mcg INH DAILY - Plan Plan:: He is better today. Still has cough and wheezing noted of oxygenation. Salt has improved. He is ready to go home. I will discharge him home to complete 5 days of azithromycin and prednisone. I've advised him to see his primary physician next week. He might need to go on a LABA
[2017-11-07] MEDS ORDERED: FLUOXETINE 20 MG PO SCH (09:00)
[2017-11-07] MEDS ORDERED: TIOTROPIUM 18 MCG INH SCH (09:00)
[2017-11-07 11:01] VITALS: BP 119/64
== END 2017-11-07 13:03 | disposition home or self-care (01) ==
LOC: FB.ED 09:42 → FB.MS 13:15
PROVIDERS: ADMIT Family Medicine; ATTEND Family Medicine
DX: C34.92 Malignant neoplasm of unspecified part of left bronchus or lung (principal); J44.1 Chronic obstructive pulmonary disease with (acute) exacerbation; G47.33 Obstructive sleep apnea (adult) (pediatric); E66.9 Obesity, unspecified; N18.3 Chronic kidney disease, stage 3 (moderate); D64.9 Anemia, unspecified; F32.9 Major depressive disorder, single episode, unspecified; E78.5 Hyperlipidemia, unspecified; J02.0 Streptococcal pharyngitis; Z88.0 Allergy status to penicillin; Z88.8 Allergy status to other drugs, medicaments and biological substances; Z87.891 Personal history of nicotine dependence
CPT/HCPCS: 36415; 36600; 71046; 80048; 80053; 82550; 82803; 83605; 83735; 83880; 84100; 84484; 85025; 87040; 87880; 93005; 94640; 96374; 99285; A9270; J0456; J2930; J7050; J7612; J7620; 96365; 96375; 96376; G0378

== ENCOUNTER 2020-02-12 07:09 | Day surgery (SDC) | payer MEDICARE, OTHER ==
[~2020-02-12 07:09] MED LIST: Albuterol/Ipratropium 3.0-0.5 MG/3 ML Neb Soln NEB PRN
[2020-02-12] MEDS ORDERED: Midazolam 1 MG/ML 2 ML SDV IV ONE (07:10)
[2020-02-12] MEDS ORDERED: Propofol 200 MG/20 ML SDV IV ONE (07:10)
[2020-02-12] MEDS ORDERED: Lactated Ringers 1,000 ML IV SCH (07:15)
[2020-02-12] MEDS ORDERED: Sodium Chloride 0.9% 10 ML Syringe FLUSH PRN (07:15)
[2020-02-12] MEDS ORDERED: Albuterol/Ipratropium 3.0-0.5 MG/3 ML Neb Soln NEB PRN (07:15)
--- NOTE | 2020-02-12 08:48 | PCM.OPNOTE ---
- General Post-Op/Procedure Note Date of Surgery/Procedure: 02/12/20 Operative Procedure(s): c scope with loop biospy Findings: ascending x3, transverse x1, descending x3, sigmoid x2 colon polyps Pre Op Diagnosis: screening Post-Op Diagnosis: colon polyps ascending x3, transverse x1, descending x3, sigmoid x2 Anesthesia Technique: MAC Primary Surgeon: Can Overton Anesthesia Provider: Janeth Belcher Pathology: ascending x3, transverse x1, descending x3, sigmoid x2 polyps Complications: None Condition: Good Free Text/Narrative:: see dictation
[2020-02-12 10:43] VITALS: BP 123/71; PULSE 79
--- NOTE | 2020-02-12 15:03 | OR ---
DATE OF OPERATION: 02/12/2020 SURGEON: Can Overton MD PROCEDURE PERFORMED: Colonoscopy with hot loop snare biopsy. PREOPERATIVE DIAGNOSIS: Colon cancer screening. POSTOPERATIVE DIAGNOSES: Ascending colon polyps x3, transverse colon polyp x1, descending colon polyps x3, sigmoid colon polyps x2. INDICATIONS FOR PROCEDURE: This is a 69-year-old white male who presents for routine followup colonoscopy. He was offered and accepted same. DESCRIPTION OF OPERATION: After an excellent IV sedation was administered, digital rectal exam was performed. No marked abnormality was noted. Flexible colonoscope was inserted and advanced to the cecum. The prep was excellent. The following findings were noted: Ascending colon, 3 polyps were encountered, biopsied with hot loop snare, submitted in one container. Transverse colon, one polyp, biopsied with the hot loop snare and submitted. Descending colon, 3 polyps, biopsied with the hot loop snare and submitted in one container. Sigmoid, 2 polyps, biopsied with the hot loop snare and submitted in one container. The rectum was unremarkable. Results will be sent to the patient via letter and the size varied from 3 to approximately 8 mm with the largest being a polyp of the ascending colon. /[id number] /MODL
== END 2020-02-12 09:24 | disposition home or self-care (01) ==
LOC: FB.SDS 07:09
PROVIDERS: ATTEND Surgery
DX: Z12.11 Encounter for screening for malignant neoplasm of colon (principal); D12.2 Benign neoplasm of ascending colon; D12.3 Benign neoplasm of transverse colon; D12.4 Benign neoplasm of descending colon; D12.5 Benign neoplasm of sigmoid colon; J44.9 Chronic obstructive pulmonary disease, unspecified; E78.5 Hyperlipidemia, unspecified; N18.3 Chronic kidney disease, stage 3 (moderate); D63.1 Anemia in chronic kidney disease; Z90.49 Acquired absence of other specified parts of digestive tract; Z98.890 Other specified postprocedural states; Z88.0 Allergy status to penicillin; Z79.899 Other long term (current) drug therapy
CPT/HCPCS: 00812; 45385; J2250; J2704; J7120; 88305; J7620-GY

== ENCOUNTER 2023-06-08 10:54 | Emergency (ER) | payer MEDICARE, OTHER ==
[2023-06-08] MEDS ORDERED: Nitroglycerin 0.4 MG Tab.SL SL PRN (11:30)
[2023-06-08] MEDS ORDERED: Aspirin 81 MG Tab.Chew PO ONE (11:30)
[2023-06-08] MEDS ORDERED: amLODIPine 5 MG Tab PO ONE (11:48)
[2023-06-08] MEDS ORDERED: Labetalol 20 MG/4 ML Syringe IVPUSH ONE (11:48)
[2023-06-08 11:54] LABS: BASOPHILS PERCENT AUTO 0.4 % (0.3-3.8); EOSINOPHILS ABSOLUTE AUTO 0.1 x10-3/uL (0.0-0.6); EOSINOPHILS PERCENT AUTO 2.1 % (0.1-6.8); HEMATOCRIT 33.3 % (38.3-50.1); LYMPHOCYTES ABSOLUTE AUTO 0.6 x10-3/uL (0.5-4.5); LYMPHOCYTES PERCENT AUTO 11.2 % (15.8-45.3); MEAN CORPUSCULAR HEMOGLOBIN 28.5 pg (27.0-33.3); MEAN CORPUSCULAR HGB CONC 33.2 g/dL (28.7-35.3); MEAN CORPUSCULAR VOLUME 85.8 fL (80.8-98.7); MEAN PLATELET VOLUME 7.4 fL (6.7-11.0); MONOCYTES ABSOLUTE AUTO 0.4 x10-3/uL (0.0-1.2); MONOCYTES PERCENT AUTO 8.6 % (5.5-15.2); NEUTROPHILS ABSOLUTE AUTO 3.9 x10-3/uL (1.7-6.9); NEUTROPHILS PERCENT AUTO 77.7 % (40.3-71.8); PLATELET COUNT,PLT 155 x10(3)uL (117-477); RED BLOOD CELL COUNT 3.88 x10(6)uL (3.90-5.90); WHITE BLOOD CELL COUNT,WBC 5.1 x10-3/uL (3.2-10.1)
[2023-06-08 12:08] LABS: A/G RATIO 0.9; ALANINE AMINOTRANSFERASE,ALT 23 U/L (12-36); ALBUMIN 3.4 g/dL (3.2-4.6); ALKALINE PHOSPHATASE 86 IU/L (56-112); ASPARTATE AMNIOTRANSFERASE,AST 19 IU/L (5-25); BILIRUBIN TOTAL 0.6 mg/dL (0.1-1.3); BLOOD UREA NITROGEN,BUN 35 mg/dL (7-18); CALCIUM 9.3 mg/dL (8.6-10.2); CARBON DIOXIDE,CO2 34 mmol/L (21-32); CHLORIDE,CL 106 mmol/L (100-110); EST CRCL DRUG DOSING (CG) 25.71 mL/min; ESTIMATED GFR 27 mL/min (>60); GLUCOSE RANDOM 81 mg/dL (80-116); POTASSIUM,K 3.9 mmol/L (3.5-5.3); PROTEIN TOTAL,TP 7.4 g/dL (6.0-8.0); SODIUM,NA 142 mmol/L (135-145)
[2023-06-08 12:10] LABS: TROPONIN I 49.3 pg/mL (4.0-60.3)
[2023-06-08 12:13] LABS: CREATININE 2.5 mg/dL (0.70-1.30)
[2023-06-08 12:17] LABS: D-DIMER QUANTITATIVE 0.55 mg/LFEU (0.0-0.59)
[2023-06-08 12:22] LABS: INR 1.05 (1.00-1.24); PROTHROMBIN TIME 10.8 sec (9.0-11.1); PTT,PARTIAL THROMBOPLSTIN TIME 27.3 SECONDS (24.4-33.2)
[2023-06-08] MEDS ORDERED: Metolazone 2.5 MG Tab PO ONE (12:55)
[2023-06-08] MEDS ORDERED: Furosemide 40 MG/4 ML VIAL IVPUSH ONE (12:55)
[2023-06-08] MEDS: Sodium Chloride 0.9% 10 ML Syringe FLUSH PRN ×3 (13:19→14:28)
[2023-06-08] MEDS ORDERED: hydrALAZINE 20 MG/ML SDV IVPUSH ONE (13:45)
[2023-06-08 14:52] VITALS: BP 166/80; PULSE 83
== END 2023-06-08 14:37 | disposition home or self-care (01) ==
LOC: FB.ED 10:54
DX: I50.9 Heart failure, unspecified (principal); D63.1 Anemia in chronic kidney disease; N18.9 Chronic kidney disease, unspecified; G47.33 Obstructive sleep apnea (adult) (pediatric); I45.10 Unspecified right bundle-branch block; E78.00 Pure hypercholesterolemia, unspecified; J44.9 Chronic obstructive pulmonary disease, unspecified; Z88.0 Allergy status to penicillin; Z79.899 Other long term (current) drug therapy
CPT/HCPCS: 36415; 71045; 80053; 83880; 84484; 85025; 85379; 85610; 85730; 93005; 96374; 96375; 99285-25; A9270-GY; J0360; J1642; J1940; J3490